=== PATIENT | female | born 1970 | race Two or more races ===

== ENCOUNTER → 2025-07-11 | Outpatient (CLI) | payer MEDICAID, SELFPAY ==
--- NOTE | 2025-07-11 13:30 | XR_ITS ---
Examination: Screening digital mammography, bilateral Computer aided detection 3-D breast Tomosynthesis, bilateral Date and time of exam: 07/11/2025, 1:09 PM Comparisons: January 2012 through October 2015 Indications: Screening Technique: Nonmagnified MLO, CC views of the breasts to been obtained, reconstructed from 3-D Tomosynthesis images. R2 computer aided detection program utilized for evaluation of suspicious masses and/or abnormal calcifications. 3-D Tomosynthesis images obtained. Technologist: Findings: There are scattered areas of fibroglandular density. Benign-appearing postoperative changes in the right breast with architectural distortion. Asymmetry outer left breast, 7.7 cm from the nipple on the MLO view. Otherwise, no evidence of abnormal masses or suspicious calcifications. Impression: Left breast asymmetry as above. Spot compression views and possible ultrasound evaluation recommended. BI-RADS category 0: Incomplete assessment; need additional imaging evaluation
== END | disposition home or self-care (01) ==
LOC: CDIM 13:00
PROVIDERS: Referring Provider Physician Assistant; Visit Provider Physician Assistant
DX: Z12.31 Encounter for screening mammogram for malignant neoplasm of breast (principal); N64.89 Other specified disorders of breast; R92.8 Other abnormal and inconclusive findings on diagnostic imaging of breast
CPT/HCPCS: 77063; 77067

== ENCOUNTER → 2025-09-28 | Outpatient (CLI) | payer MEDICAID, SELFPAY ==
--- NOTE | 2025-09-28 11:00 | XR_ITS ---
Examination: Breast ultrasound, unilateral, left complete Date and time of exam: September 28, 2025 1042 hours INDICATIONS: Mammogram July 11, 2025 asymmetry outer left breast 7.7 cm from the nipple on the MLO view Technique: Real-time otero scale ultrasonographic imaging performed left breast including all 4 quadrants as well as nipple retroareolar and axillary region. Findings: 2:00 nodule circumscribed 5 x 5 mm 3:00 probable glandular tissue 6:00 nodule circumscribed 5 x 5 mm 7:00 nodule lobular margins 9 x 7 mm 25 mm axillary lymph node IMPRESSION: BI-RADS Category 3: Probably benign findings 1 additional 6-month left breast sonogram follow-up is needed to document stability of nodules described above
--- NOTE | 2025-09-28 11:30 | XR_ITS ---
Examination: Diagnostic digital mammography, unilateral, left Computer aided detection 3-D breast Tomosynthesis, unilateral Date and time of exam: September 28, 2025, 1104 hours INDICATIONS: Mammogram July 11, 2025 asymmetry outer left breast on the MLO view, 7.7 cm from the nipple Technique: Nonmagnified MLO, CC views of the left breast have been obtained, reconstructed from 3-D Tomosynthesis images. R2 computer aided detection program utilized for evaluation of suspicious masses and/or abnormal calcifications. 3-D Tomosynthesis images obtained. Findings: Scattered areas of fibroglandular density. 2:00 nodule left breast partially indistinct margins, likely corresponding to 2:00 nodule 5 mm on the left breast sonogram September 28, 2025 Impression: BI-RADS category 3: Probably benign findings Recommend continued 6-month follow-up left mammography as well as 6-month follow-up left breast sonography
== END | disposition home or self-care (01) ==
LOC: CDIM 10:33
PROVIDERS: Referring Provider Specialist; Visit Provider Specialist
DX: R92.332 Mammographic heterogeneous density, left breast (principal); N63.25 Unspecified lump in the left breast, overlapping quadrants; N63.21 Unspecified lump in the left breast, upper outer quadrant; N63.24 Unspecified lump in the left breast, lower inner quadrant
CPT/HCPCS: 76641; 77061; 77065; G0279